=== PATIENT | male | born 1945 | race Caucasian/White ===

== ENCOUNTER → 2019-04-18 | Outpatient (CLI) | payer MEDICARE | END | disposition home or self-care (01) | LOC: RAH 11:05 | PROVIDERS: ATTEND Urology | DX: N40.0 Benign prostatic hyperplasia without lower urinary tract symptoms (principal); N32.89 Other specified disorders of bladder; R31.0 Gross hematuria | CPT/HCPCS: 76770 ==

== ENCOUNTER 2023-06-25 10:31 | Emergency (ER) | payer OTHER, MEDICARE ==
[~2023-06-25] VITALS: Ht 182.9 cm; Wt 89.9 kg
[2023-06-25] MEDS ORDERED: DICL20GE TP (13:03)
[2023-06-25 13:11] VITALS: BP 138/72; PULSE 82; RESP 18; O2SAT 98
== END 2023-06-25 13:22 | disposition home or self-care (01) ==
LOC: EDH 10:31
DX: M79.89 Other specified soft tissue disorders (principal); I10 Essential (primary) hypertension; Z90.49 Acquired absence of other specified parts of digestive tract
CPT/HCPCS: 93971